=== PATIENT | male | born 1995 | race Caucasian/White ===

== ENCOUNTER 2018-01-22 04:40 | Emergency (ER) | payer MEDICAID, OTHER ==
[2018-01-22 04:44] VITALS: BP 129/81; PULSE 113; RESP 28; TEMP 98.1; O2SAT 100
[2018-01-22] MEDS ORDERED: ONDANSETRON HCL 4 MG/2 ML VIAL ONE (04:45)
[2018-01-22] MEDS ORDERED: ZOLO25TA PO (04:50)
[2018-01-22] MEDS ORDERED: PROMETHAZINE INJ 25 MG/ML VIAL IM ONE (05:00)
[2018-01-22] MEDS ORDERED: ONDANSETRON HCL 4 MG/2 ML VIAL IV PUSH ONE (05:00)
[2018-01-22 05:14] LABS: AUTOMATED NEUTROPHIL # 7.2 TH/MM3 (1.8-7.7); BASOPHIL # 0.1 TH/MM3 (0-0.2); BASOPHIL % 0.8 % (0.0-2.0); EOSINOPHIL % 0.2 % (0.0-4.0); HEMATOCRIT 42.6 % (39.0-51.0); HEMOGLOBIN 14.9 GM/DL (13.0-17.0); LYMPH % 31.9 % (9.0-44.0); LYMPHOCYTE # 3.7 TH/MM3 (1.0-4.8); MEAN CELL VOLUME 88.9 FL (80.0-100.0); MEAN CORPUSCULAR HEMOGLOBIN 31.2 PG (27.0-34.0); MEAN CORPUSCULAR HGB CONC 35.1 % (32.0-36.0); MEAN PLATELET VOLUME 8.8 FL (7.0-11.0); MONO % 5.1 % (0.0-8.0); MONOCYTE # 0.6 TH/MM3 (0-0.9); PLATELET COUNT 239 TH/MM3 (150-450); RED BLOOD COUNT 4.79 MIL/MM3 (4.50-5.90); RED CELL DISTRIBUTION WIDTH 13.1 % (11.6-17.2); WHITE BLOOD COUNT 11.6 TH/MM3 (4.0-11.0)
[2018-01-22 05:30] VITALS: BP 110/69; PULSE 84; RESP 18; O2SAT 98
[2018-01-22 05:36] LABS: BICARBONATE 24.2 MEQ/L (21.0-32.0); BLOOD UREA NITROGEN 16 MG/DL (7-18); CALCIUM 8.6 MG/DL (8.5-10.1); CHLORIDE 108 MEQ/L (98-107); CREATININE 1.06 MG/DL (0.60-1.30); GLOMERULAR FILTRATION RATE 87 ML/MIN (>89); GLUCOSE,RANDOM 112 MG/DL (74-106); SODIUM (NA) 142 MEQ/L (136-145)
[2018-01-22 05:38] LABS: ACETAMINOPHEN LESS THAN 2.0 MCG/ML (10.0-30.0)
[2018-01-22 05:44] LABS: INTERNATIONAL NORMALIZED RATIO 1.2 RATIO; PROTHROMBIN TIME - PATIENT 11.9 SEC (9.8-11.6)
[2018-01-22] MEDS ORDERED: SODIUM CHLOR 0.9% 1000 ML INJ 1,000 ML IV ONE (05:45)
[2018-01-22] MEDS ORDERED: LORazepam 2 MG/ML VIAL IV PUSH ONE (05:45)
--- NOTE | 2018-01-22 05:59 | PD ---
HPI Chief Complaint: Bizarre behavior Time Seen by Provider: 04:46 Travel History International Travel<30 days: No Contact w/Intl Traveler<30days: No Traveled to known affect area: No History of Present Illness HPI 22yo M with PMH of asthma was brought in by [facility] for bizarre behavior after going to the club today. Pt has been drinking with his cousin and [facility] said pt was hyperventilating and had mild wheezing so they gave him methylprednisolone 125mg and one nebulizer treatment. Said he was in and out so they also gave him narcan just in case. Pt was very anxious when he arrived and rolling around the bed and hyperventilating. Pt said he was nauseous and vomited and given zofran. Unable to obtain further history. PFSH Past Medical History Asthma: Yes Anxiety: Yes Depression: Yes Social History Alcohol Use: Yes Tobacco Use: No Substance Use: No Allergies-Medications (Allergen,Severity, Reaction): Coded Allergies: Penicillins (Verified Allergy, Unknown, 01/22/18) Reported Meds & Prescriptions Reported Meds & Active Scripts Active Reported Zoloft (Sertraline HCl) 25 Mg Tab 25 Mg PO DAILY Review of Systems ROS Limitations: Clinical Condition Physical Exam Narrative GENERAL: 22yo M in mild distress. SKIN: Focused skin assessment warm/dry. HEAD: Atraumatic. Normocephalic. EYES: Pupils equal and round at 3mm bilaterally. ENT: No nasal bleeding or discharge. Mucous membranes pink and moist. NECK: Trachea midline. No JVD. CARDIOVASCULAR: Regular rate and rhythm. No murmur appreciated. RESPIRATORY: Pt is hyperventilating. Clear to auscultation. Breath sounds equal bilaterally. GASTROINTESTINAL: Abdomen soft, non-tender, nondistended. MUSCULOSKELETAL: No obvious deformities. No clubbing. No cyanosis. No edema. NEUROLOGICAL: Awake and alert. No obvious cranial nerve deficits. Motor grossly within normal limits in all extremities. Normal speech. PSYCHIATRIC: Anxious. Data Data Last Documented VS Vital Signs Date Time Temp Pulse Resp B/P (MAP) Pulse Ox O2 Delivery O2 Flow Rate FiO2 01/22/18 15:15 01/22/18 09:00 84 16 98 2.00 01/22/18 07:09 Nasal Cannula 01/22/18 04:44 98.1 Orders Orders Ondansetron Inj (Zofran Inj) (01/22/18 04:45) Ct Brain W/O Iv Contrast(Rout) (01/22/18 ) Complete Blood Count With Diff (01/22/18 04:46) Basic Metabolic Panel (Bmp) (01/22/18 04:46) Alcohol (Ethanol) (01/22/18 04:46) Prothrombin Time / Inr (Pt) (01/22/18 04:46) Act Partial Throm Time (Ptt) (01/22/18 04:46) Tylenol (Acetaminophen) (01/22/18 04:46) Salicylates (Aspirin) (01/22/18 04:46) Thyroid Stimulating Hormone (01/22/18 04:46) Ondansetron Inj (Zofran Inj) (01/22/18 05:00) Promethazine Inj (Phenergan Inj) (01/22/18 05:00) Sodium Chlor 0.9% 1000 Ml Inj (Ns 1000 M (01/22/18 05:45) Lorazepam Inj (Ativan Inj) (01/22/18 05:45) Chest, Single Ap (01/22/18 ) Labs Laboratory Tests Test 01/22/18 04:51 White Blood Count 11.6 TH/MM3 Red Blood Count 4.79 MIL/MM3 Hemoglobin 14.9 GM/DL Hematocrit 42.6 % Mean Corpuscular Volume 88.9 FL Mean Corpuscular Hemoglobin 31.2 PG Mean Corpuscular Hemoglobin Concent 35.1 % Red Cell Distribution Width 13.1 % Platelet Count 239 TH/MM3 Mean Platelet Volume 8.8 FL Neutrophils (%) (Auto) 62.0 % Lymphocytes (%) (Auto) 31.9 % Monocytes (%) (Auto) 5.1 % Eosinophils (%) (Auto) 0.2 % Basophils (%) (Auto) 0.8 % Neutrophils # (Auto) 7.2 TH/MM3 Lymphocytes # (Auto) 3.7 TH/MM3 Monocytes # (Auto) 0.6 TH/MM3 Eosinophils # (Auto) 0.0 TH/MM3 Basophils # (Auto) 0.1 TH/MM3 CBC Comment DIFF FINAL Differential Comment Prothrombin Time 11.9 SEC Prothromb Time International Ratio 1.2 RATIO Activated Partial Thromboplast Time 24.7 SEC Blood Urea Nitrogen 16 MG/DL Creatinine 1.06 MG/DL Random Glucose 112 MG/DL Calcium Level 8.6 MG/DL Sodium Level 142 MEQ/L Potassium Level 3.6 MEQ/L Chloride Level 108 MEQ/L Carbon Dioxide Level 24.2 MEQ/L Anion Gap 10 MEQ/L Estimat Glomerular Filtration Rate 87 ML/MIN Thyroid Stimulating Hormone 3rd Gen 1.360 uIU/ML Salicylates Level LESS THAN 1.7 MG/DL Acetaminophen Level LESS THAN 2.0 MCG/ML Ethyl Alcohol Level 265 MG/DL [facility] Medical Decision Making Medical Screen Exam Complete: Yes Emergency Medical Condition: Yes Differential Diagnosis Drug induced psychosis vs. electrolyte abnormality vs. alcohol intoxication Narrative Course 22yo M was brought in for bizarre behavior having drinking at a club today. Pt' s cousin came after and said she believes he drank her drink that probably had drugs put in. Said he has never acted like this after drinking alcohol. Labs reviewed, WBC 11.6. TSH normal. Glucose 112. Blood alcohol 265. Acetaminophen negative. Salicylate negative. Pt given NS IVF, zofran and still vomited. Phenergan given. Pt is still very agitated and rolling around in bed so ativan 1mg IV given. CT brain and CXR pending. Sign out to next team to follow up and disposition. Diagnosis Primary Impression: Altered mental status Qualified Codes: R41.82 - Altered mental status, unspecified Jessica Nunez DO Jan 22, 2018 05:59
[2018-01-22 06:00] VITALS: BP 112/59; PULSE 88; RESP 16; O2SAT 95
[2018-01-22 06:15] VITALS: O2SAT 100
--- NOTE | 2018-01-22 06:42 | RADRPT ---
EXAM DATE/TIME: 01/22/2018 06:09 [facility] COMPARISON: No previous studies available for comparison. INDICATIONS : Short of breath. MEDICAL HISTORY : None. SURGICAL HISTORY : None. ENCOUNTER: Initial ACUITY: 1 day PAIN SCORE: Non-responsive. LOCATION: Bilateral chest FINDINGS: A single view of the chest demonstrates the lungs to be symmetrically aerated without evidence of mas s, infiltrate or effusion. The cardiomediastinal contours are unremarkable. Osseous structures are intact. CONCLUSION: No evidence of acute cardiopulmonary disease. Chaz Garcia MD on January 22, 2018 at 6:40 Board Certified Radiologist. This report was verified electronically.
[2018-01-22 07:09] VITALS: BP 95/55; PULSE 85; RESP 17; O2SAT 98
--- NOTE | 2018-01-22 07:09 | RADRPT ---
EXAM DATE/TIME: 01/22/2018 06:55 [facility] COMPARISON: No previous studies available for comparison. INDICATIONS : Altered mental status. RADIATION DOSE: 66.34 CTDIvol (mGy) MEDICAL HISTORY : None SURGICAL HISTORY : None. ENCOUNTER: Initial ACUITY: 1 day PAIN SCALE: Non-responsive LOCATION: cranial TECHNIQUE: Multiple contiguous axial images were obtained of the head. Using automated exposure control and adj ustment of the mA and/or kV according to patient size, radiation dose was kept as low as reasonably a chievable to obtain optimal diagnostic quality images. DICOM format image data is available electro nically for review and comparison. FINDINGS: CEREBRUM: The ventricles are normal for age. No evidence of midline shift, mass lesion, hemorrhage or acute in farction. No extra-axial fluid collections are seen. POSTERIOR FOSSA: The cerebellum and brainstem are intact. The 4th ventricle is midline. The cerebellopontine angle i s unremarkable. EXTRACRANIAL: The visualized portion of the orbits is intact. SKULL: The calvaria is intact. No evidence of skull fracture. CONCLUSION: No acute disease. Blane Parker MD on January 22, 2018 at 7:05 Board Certified Radiologist. This report was verified electronically.
--- NOTE | 2018-01-22 07:46 | PD ---
Physical Exam Date Seen by Provider: Jan 22, 2018 Narrative Care was assumed at [address] This patient was brought in during the night with bizarre behavior which started while he was at a bar with friends and family. He has been treated with Ativan and is now sound asleep. His respirations are nonlabored. His vital signs are normal. Data Data Last Documented VS Vital Signs Date Time Temp Pulse Resp B/P (MAP) Pulse Ox O2 Delivery O2 Flow Rate FiO2 01/22/18 07:09 85 17 95/55 (68) 98 Nasal Cannula 2.00 01/22/18 04:44 98.1 Orders Orders Ondansetron Inj (Zofran Inj) (01/22/18 04:45) Ct Brain W/O Iv Contrast(Rout) (01/22/18 ) Complete Blood Count With Diff (01/22/18 04:46) Basic Metabolic Panel (Bmp) (01/22/18 04:46) Alcohol (Ethanol) (01/22/18 04:46) Prothrombin Time / Inr (Pt) (01/22/18 04:46) Act Partial Throm Time (Ptt) (01/22/18 04:46) Drug Screen, Random Urine (01/22/18 04:46) Tylenol (Acetaminophen) (01/22/18 04:46) Salicylates (Aspirin) (01/22/18 04:46) Thyroid Stimulating Hormone (01/22/18 04:46) Ondansetron Inj (Zofran Inj) (01/22/18 05:00) Promethazine Inj (Phenergan Inj) (01/22/18 05:00) Sodium Chlor 0.9% 1000 Ml Inj (Ns 1000 M (01/22/18 05:45) Lorazepam Inj (Ativan Inj) (01/22/18 05:45) Chest, Single Ap (01/22/18 ) End Tidal Co2 (Etco2) (01/22/18 ) Labs Laboratory Tests Test 01/22/18 04:51 White Blood Count 11.6 TH/MM3 Red Blood Count 4.79 MIL/MM3 Hemoglobin 14.9 GM/DL Hematocrit 42.6 % Mean Corpuscular Volume 88.9 FL Mean Corpuscular Hemoglobin 31.2 PG Mean Corpuscular Hemoglobin Concent 35.1 % Red Cell Distribution Width 13.1 % Platelet Count 239 TH/MM3 Mean Platelet Volume 8.8 FL Neutrophils (%) (Auto) 62.0 % Lymphocytes (%) (Auto) 31.9 % Monocytes (%) (Auto) 5.1 % Eosinophils (%) (Auto) 0.2 % Basophils (%) (Auto) 0.8 % Neutrophils # (Auto) 7.2 TH/MM3 Lymphocytes # (Auto) 3.7 TH/MM3 Monocytes # (Auto) 0.6 TH/MM3 Eosinophils # (Auto) 0.0 TH/MM3 Basophils # (Auto) 0.1 TH/MM3 CBC Comment DIFF FINAL Differential Comment Prothrombin Time 11.9 SEC Prothromb Time International Ratio 1.2 RATIO Activated Partial Thromboplast Time 24.7 SEC Blood Urea Nitrogen 16 MG/DL Creatinine 1.06 MG/DL Random Glucose 112 MG/DL Calcium Level 8.6 MG/DL Sodium Level 142 MEQ/L Potassium Level 3.6 MEQ/L Chloride Level 108 MEQ/L Carbon Dioxide Level 24.2 MEQ/L Anion Gap 10 MEQ/L Estimat Glomerular Filtration Rate 87 ML/MIN Thyroid Stimulating Hormone 3rd Gen 1.360 uIU/ML Salicylates Level LESS THAN 1.7 MG/DL Acetaminophen Level LESS THAN 2.0 MCG/ML Ethyl Alcohol Level 265 MG/DL MDM Supervised Visit with YOAN: No Differential Diagnosis Differential diagnosis of altered mental status includes but is not limited to infection, electrolyte abnormality, neurological event, intoxication Narrative Course This patient presented to us with agitation and odd behavior which started while he was at a bar. CBC & BMP Diagram 01/22/18 04:51 Calcium Level 8.[address] head>>No acute disease. He will be allowed to sleep it off. Diagnosis Primary Impression: Altered mental status Qualified Codes: R41.82 - Altered mental status, unspecified Additional Impression: Acute alcohol intoxication Qualified Codes: F10.929 - Alcohol use, unspecified with intoxication, unspecified Patient Instructions: Alcohol Intoxication (DC), General Instructions Disposition: 01 DISCHARGE HOME Condition: Stable Preeti Campbell MD Jan 22, 2018 07:46
[2018-01-22 09:00] VITALS: BP 101/53; PULSE 84; RESP 16; O2SAT 98
== END 2018-01-22 15:15 | disposition home or self-care (01) ==
LOC: NEPC 04:40 → NEDAMB 15:15
DX: R41.82 Altered mental status, unspecified (principal); F10.929 Alcohol use, unspecified with intoxication, unspecified; F41.8 Other specified anxiety disorders; Y90.8 Blood alcohol level of 240 mg/100 ml or more; Z79.899 Other long term (current) drug therapy
CPT/HCPCS: 70450; 71045; 80048; 80307; 84443; 85025; 85610; 85730; 96361; 96372; 96374; 96375; 99285; J2060; J2550; J7030; J2405